=== PATIENT | male | born 1965 | race Caucasian/White ===

== ENCOUNTER 2021-11-30 13:56 | Emergency (ER) | payer OTHER ==
[~2021-11-30] VITALS: Ht 162.6 cm; Wt 72.5 kg
[2021-11-30] MEDS ORDERED: BACL10TA PO (15:25)
[2021-11-30] MEDS: KETOROLAC TROMETHAMINE 30 MG/ML VIAL IM ONE (15:30)
[2021-11-30 16:20] VITALS: BP 118/93
== END 2021-11-30 16:23 | disposition home or self-care (01) ==
LOC: EMS 13:56
DX: M54.42 Lumbago with sciatica, left side (principal); M79.601 Pain in right arm; F17.210 Nicotine dependence, cigarettes, uncomplicated
CPT/HCPCS: 96372; 99283; J1885

== ENCOUNTER 2021-12-19 12:51 | Emergency (ER) | payer OTHER ==
[~2021-12-19] VITALS: Ht 162.6 cm; Wt 65.9 kg
[~2021-12-19 12:51] MED LIST: BACL10TA PO
[2021-12-19] MEDS ORDERED: ATOR10TA84 PO (13:08)
[2021-12-19 13:37] LABS: COVID AG,FIA SOURCE NASAL SWAB
[2021-12-19] MEDS ORDERED: ACETAMINOPHEN 500 MG TABLET PO ONE (13:45)
[2021-12-19 14:09] LABS: INFLUENZA TYPE A NEGATIVE FOR TYPE A (NEGATIVE); INFLUENZA TYPE B NEGATIVE FOR TYPE B (NEGATIVE)
[2021-12-19 14:45] VITALS: BP 122/71
[2021-12-19] MEDS ORDERED: NIRM1TAB5 PO (14:45)
[2021-12-19] MEDS ORDERED: NIRM1TAB PO (20:10)
== END 2021-12-19 15:03 | disposition home or self-care (01) ==
LOC: EMS 13:06
DX: U07.1 COVID-19 (principal); F17.210 Nicotine dependence, cigarettes, uncomplicated; Z79.899 Other long term (current) drug therapy
CPT/HCPCS: 87804; 99283

== ENCOUNTER 2022-04-05 10:06 | Emergency (ER) | payer OTHER ==
[~2022-04-05] VITALS: Ht 162.6 cm; Wt 68.8 kg
[~2022-04-05 10:06] MED LIST changes: +ATOR10TA84 PO; -BACL10TA PO; +NIRM1TAB PO
[2022-04-05] MEDS ORDERED: METHOCARBAMOL 500 MG TABLET PO ONE (12:00)
[2022-04-05] MEDS ORDERED: KETOROLAC TROMETHAMINE 30 MG/ML VIAL IM ONE (12:00)
[2022-04-05] MEDS ORDERED: LIDOCAINE 5% TRANSDERMAL PATCH TD ONE (12:00)
[2022-04-05] MEDS ORDERED: LIDO700A15 TP (13:12)
[2022-04-05] MEDS ORDERED: BACL10TA PO (13:13)
[2022-04-05] MEDS ORDERED: IBUP-2070 PO (13:15)
[2022-04-05 13:36] VITALS: BP 125/71
== END 2022-04-05 13:38 | disposition home or self-care (01) ==
LOC: EMS 10:06
DX: M54.50 Low back pain, unspecified (principal); E78.00 Pure hypercholesterolemia, unspecified
CPT/HCPCS: 99283; 72100; 96372; J1885

== ENCOUNTER 2024-04-10 22:08 | Emergency (ER) | payer MEDICAID, OTHER ==
[~2024-04-10] VITALS: Ht 162.6 cm; Wt 66.4 kg
[~2024-04-10 22:08] MED LIST changes: +ATOR10TA PO; -ATOR10TA84 PO; +BACL10TA PO; +IBUP-1492 PO; +LIDO700A15 TP
[2024-04-10 22:17] VITALS: BP 125/75; PULSE 76; RESP 20; TEMP 98.8; O2SAT 96
[2024-04-10 22:27] LABS: COVID AG,FIA SOURCE NASAL SWAB
[2024-04-10 22:45] LABS: INFLUENZA TYPE A NEGATIVE FOR TYPE A (NEGATIVE); INFLUENZA TYPE B NEGATIVE FOR TYPE B (NEGATIVE)
[2024-04-10 22:47] LABS: SARS-COV2 (COVID) ANTIGEN,FIA Positive (Negative)
[2024-04-11] MEDS ORDERED: NIRM1TAB10 PO (01:57)
== END 2024-04-11 02:21 | disposition home or self-care (01) ==
LOC: EMS 22:08
DX: U07.1 COVID-19 (principal); R53.1 Weakness; R09.81 Nasal congestion; M79.10 Myalgia, unspecified site
CPT/HCPCS: 87804; 99283